=== PATIENT | male | born 1945 | race Caucasian/White ===

== ENCOUNTER 2020-11-20 00:26 | Emergency (ER) | payer OTHER ==
[~2020-11-20] VITALS: Ht 177.8 cm; Wt 93.0 kg
== END 2020-11-20 01:58 | disposition left against medical advice (07) ==
LOC: ER 00:26
DX: Z53.21 Procedure and treatment not carried out due to patient leaving prior to being seen by health care provider (principal)

== ENCOUNTER 2021-06-17 01:37 | Emergency (ER) | payer OTHER ==
[2021-06-17 07:20] LABS: BASOPHILS ABSOLUTE AUTO 0.04 K/mm3 (0.00-0.23); BASOPHILS PERCENT AUTO 0 % (0-2); EOSINOPHILS ABSOLUTE AUTO 0.16 K/mm3 (0.00-0.68); EOSINOPHILS PERCENT AUTO 2 % (0-6); Hematocrit 43.2 % (37.0-53.0); Hemoglobin 14.5 g/dL (13.5-17.5); IMMATURE GRAN ABSOLUTE AUTO 0.03 K/mm3 (0.00-0.10); IMMATURE GRAN PERCENT AUTO 0 % (0-1); LYMPHOCYTES ABSOLUTE AUTO 0.75 K/mm3 (0.84-5.20); LYMPHOCYTES PERCENT AUTO 8 % (21-46); MONOCYTES ABSOLUTE AUTO 0.84 K/mm3 (0.16-1.47); MONOCYTES PERCENT AUTO 9 % (4-13); Mean Corpuscular HGB 32.9 pg (26.0-34.0); Mean Corpuscular HGB Conc 33.6 g/dL (31.5-36.5); Mean Corpuscular Volume 98 fL (80-100); Mean Platelet Volume 11.3 fL (9.1-12.4); NEUTROPHILS ABSOLUTE AUTO 7.75 K/mm3 (1.96-9.15); NEUTROPHILS PERCENT AUTO 81 % (41-73); Platelet Count 176 K/mm3 (150-400); RDW Coefficient Variation 12.6 % (11.7-14.2); RDW Standard Deviation 45.2 fL (35.1-46.3); Red Blood Cell Count 4.41 M/mm3 (4.30-5.90); White Blood Cell Count 9.57 K/mm3 (4.00-11.30)
[2021-06-17 07:39] LABS: Anion Gap 3 mmol/L (6-16); Blood Urea Nitrogen 27 mg/dL (8-24); Bun/Creatinine Ratio 32.7 (12.0-20.0); CO2, Blood 24 mmol/L (21-32); Calcium, Blood 8.6 mg/dL (8.5-10.1); Chloride, Blood 114 mmol/L (98-108); Creatinine, Blood 0.83 mg/dL (0.60-1.20); Glomerular Filtration Rate >60 (60-); Glucose, Blood 105 mg/dL (70-99); Sodium, Blood 141 mmol/L (136-145)
== END 2021-06-17 12:06 | disposition home or self-care (01) ==
LOC: ER 01:37
PROVIDERS: Emergency Medicine
DX: R33.9 Retention of urine, unspecified (principal); R31.9 Hematuria, unspecified
CPT/HCPCS: 36415; 51798; 80048; 85025; 99283-25; A9270

== ENCOUNTER → 2024-12-13 | Outpatient (CLI) | payer OTHER ==
[2024-12-21 09:07] LABS: CALCIUM, URINE - PER 24H 254 mg/d (100-250); CALCIUM, URINE - PER VOLUME 12.7 mg/dL; CHLORIDE, URINE - PER 24H 210 mmol/d (140-250); CHLORIDE, URINE - PER VOLUME 105 mmol/L; CITRIC ACID, URINE - PER 24H 1110 mg/d (320-1240); CITRIC ACID,URINE - PER VOLUME 555 mg/L; CREATININE, URINE - PER 24H 1760 mg/d (800-2100); CREATININE, URINE - PER VOLUME 88 mg/dL; HOURS COLLECTED 24 hr; MAGNESIUM, URINE - PER VOLUME 5.2 mg/dL; MAGNESIUM, URINE PER 24H 104 mg/d (12-199); OXALATE, URINE - PER 24H 54 mg/d (16-49); OXALATE, URINE - PER VOLUME 27 mg/L; PH, URINE 6.16 (5.00-7.50); PHOSPHORUS, URINE - PER 24H 1100 mg/d (400-1300); PHOSPHORUS, URINE - PER VOLUME 55 mg/dL; POTASSIUM, URINE - PER 24H 82 mmol/d (25-125); POTASSIUM, URINE - PER VOLUME 41 mmol/L; SODIUM, URINE - PER 24H 222 mmol/d (51-286); SODIUM, URINE - PER VOLUME 111 mmol/L; SULFATE, URINE - PER 24H 28 mmol/d (6-30); SULFATE, URINE - PER VOLUME 14 mmol/L; TOTAL VOLUME 2000 mL; URIC ACID, URINE - PER 24H 530 mg/d (250-750); URIC ACID, URINE - PER VOLUME 26.5 mg/dL; URINE SUPERSATURATION INTERP Abnormal; URINE SUPERSATURATION, CAHPO4 1.81; URINE SUPERSATURATION, UA CALC 0.28
== END | disposition home or self-care (01) ==
LOC: LAB 08:00 → LAB SHORT 08:00 → EDSTATUS 12-08 13:20 → LAB FUT 12-08 13:20
PROVIDERS: Urology
DX: N20.1 Calculus of ureter (principal)
CPT/HCPCS: 81003; 82131; 82140; 82340; 82436; 82507; 82570; 83735; 83935; 83945; 84105; 84133; 84300; 84392; 84560